=== PATIENT | male | born 1950 | race Two or more races ===

== ENCOUNTER → 2017-03-24 | Outpatient (CLI) | payer OTHER ==
[~2017-03-24] MED LIST: ASPI81TA42 PO; DEXL60CA3 PO; DOXA4TAB3 PO; FURO40TA5 PO; INSU100C3 SQ; INSU100C4 SQ; ISOS30TA6 PO; LORA10TA44 PO; METF10002 PO; MONT10TA21 PO; NEBI10TA PO; NIAC1TBM27 PO; RAMI10CA23 PO; VALS320T2 PO; ZOLP5TAB8 PO
== END | disposition home or self-care (01) ==
LOC: RADPV 10:42
PROVIDERS: ATTEND Family Medicine
DX: M47.812 Spondylosis without myelopathy or radiculopathy, cervical region (principal); M50.321 Other cervical disc degeneration at C4-C5 level; M50.322 Other cervical disc degeneration at C5-C6 level; M50.323 Other cervical disc degeneration at C6-C7 level; M46.02 Spinal enthesopathy, cervical region
CPT/HCPCS: 72040